=== PATIENT | female | born 1995 | race African-American/Black ===

== ENCOUNTER 2023-01-27 10:09 | Emergency (ER) | payer OTHER ==
[2023-01-27] MEDS ORDERED: ONDANSETRON ODT 4 MG TABLET TL STA (10:41)
[2023-01-27 10:50] LABS: BILIRUBIN,URINE NEGATIVE (NEGATIVE); GLUCOSE, URINE (UA) NEGATIVE (NEGATIVE); KETONES,URINE (UA) NEGATIVE (NEGATIVE); LEUKOCYTE ESTERASE, URINE NEGATIVE (NEGATIVE); NITRITE,URINE NEGATIVE (NEGATIVE); OCCULT BLOOD,URINE NEGATIVE (NEGATIVE); PROTEIN,URINE NEGATIVE (NEGATIVE); UROBILINOGEN,URINE 0.2 (NORMAL) E.U./dL (NORMAL)
[2023-01-27 10:52] LABS: BASOPHILS % (AUTO) 0.5 %; EOSINOPHILS % (AUTO) 0.3 %; HCT - HEMATOCRIT 42.3 % (37.0-47.0); HGB - HEMOGLOBIN 14.3 g/dL (12.0-16.0); LYMPHOCYTES # (AUTO) 1.5 10^3/uL (1.5-3.5); LYMPHOCYTES % (AUTO) 17.4 %; MEAN CORPUSCULAR HEMOGLOBIN 29.8 pg (27.0-31.0); MEAN CORPUSCULAR HGB CONC 33.8 g/dL (32.0-36.0); MEAN CORPUSCULAR VOLUME 88.1 fL (81.0-99.0); MEAN PLATELET VOLUME 9.2 fL (7.9-10.8); MONOCYTES # (AUTO) 0.5 10^3/uL (0.0-1.0); MONOCYTES % (AUTO) 5.9 %; NEUTROPHILS # (AUTO) 6.5 10^3/uL (1.5-6.6); NEUTROPHILS % (AUTO) 75.6 %; PLT - PLATELET COUNT 339 10^3/uL (130-450); RED CELL DISTRIBUTION WIDTH 11.9 % (12.0-15.0); WHITE BLOOD COUNT 8.6 x10^3/uL (4.8-10.8)
[2023-01-27 10:54] LABS: CLARITY,URINE CLEAR (CLEAR); HCG UR QUAL NEGATIVE
[2023-01-27 11:04] LABS: ALBUMIN 4.2 g/dL (3.2-5.5); ALBUMIN/GLOBULIN RATIO 1.2 (1.0-2.2); BILIRUBIN,TOTAL 0.5 mg/dL (0.2-1.0); CALCIUM 8.9 mg/dL (8.5-10.3); CREATININE 0.9 mg/dL (0.4-1.0); POTASSIUM 3.2 mmol/L (3.5-5.0); TOTAL PROTEIN 7.7 g/dL (6.7-8.2)
[2023-01-27] MEDS ORDERED: POTASSIUM CHLORIDE 20 MEQ TABLET PO STA (11:14)
--- NOTE | 2023-01-27 11:29 | ED Physician Documentation ---
PD HPI NVD - Stated complaint Stated Complaint: ABD PX - Chief complaint Chief Complaint: Abd Pain - History obtained from History obtained from: Patient - Additonal information Additional information: Patient is a 27-year-old female presenting for evaluation of epigastric abdominal pain with nausea that started this morning. Patient reports that the pain was much more sharp and severe this morning but has improved after taking Midol. She denies any vomiting and denies any radiation to her symptoms. Denies any diarrhea. 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 She reports that her command made her come in today for an evaluation. Review of Systems Constitutional: denies: Fever Cardiac: denies: Chest pain / pressure Respiratory: denies: Dyspnea GI: reports: Abdominal Pain, Nausea. denies: Vomiting, Diarrhea : denies: Dysuria Musculoskeletal: denies: Back pain Neurologic: denies: Headache PD PAST MEDICAL HISTORY - Past Medical History Past Medical History: Yes Neuro: Migraines - Present Medications Home Medications: Ambulatory Orders Medication Instructions Recorded Confirmed Ondansetron Odt [Zofran] 4 mg TL Q6H PRN #10 tablet 01/27/23 - Allergies Allergies/Adverse Reactions: Allergies Allergy/AdvReac Type Severity Reaction Status Date / Time No Known Drug Allergies Allergy Verified 01/27/23 10:25 - Social History Does the pt smoke?: No Smoking Status: Never smoker PD ED PE NORMAL - General General: Alert and oriented X 3, No acute distress, Well developed/nourished - HEENT HEENT: Atraumatic - Neck Neck: Supple, no meningeal sign - Cardiac Cardiac: RRR - Respiratory Respiratory: No respiratory distress, Clear bilaterally - Abdomen Abdomen: Normal bowel sounds, Soft, Non distended, Other (Mild epigastric tenderness to palpation, no right upper quadrant tenderness or Tenderness elsewhere; ) - Derm Derm: Warm and dry - Neuro Neuro: Normal speech Results - Vitals Vitals: Vital Signs - 24 hr 01/27/23 01/27/23 10:22 11:35 Temperature 36.4 C L Heart Rate 98 68 Respiratory 16 16 Rate Blood Pressure 152/104 H 124/68 O2 Saturation 99 100 Oxygen O2 Source Room air - Labs Labs: Laboratory Tests 04/12/23 04/12/23 04/12/23 10:40 10:47 10:47 WBC 8.6 RBC 4.80 Hgb 14.3 Hct 42.3 MCV 88.1 MCH 29.8 MCHC 33.8 RDW 11.9 L Plt Count 339 MPV 9.2 Neut # (Auto) 6.5 Lymph # (Auto) 1.5 [place] # (Auto) 0.5 Eos # (Auto) 0.0 Baso # (Auto) 0.0 Absolute Nucleated RBC 0.00 Nucleated RBC % 0.0 Sodium 135 Potassium 3.2 L Chloride 104 Carbon Dioxide 23 Anion Gap 8.0 BUN 9 Creatinine 0.9 Estimated GFR (MDRD) 90 Glucose 113 H Calcium 8.9 Total Bilirubin 0.5 AST 23 ALT 15 Alkaline Phosphatase 72 Total Protein 7.7 Albumin 4.2 Globulin 3.5 Albumin/Globulin Ratio 1.2 Lipase 41 Urine Color LIGHT YELLOW Urine Clarity CLEAR Urine pH 6.0 Ur Specific Lowber <=1.005 Urine Protein NEGATIVE Urine Glucose (UA) NEGATIVE Urine Ketones NEGATIVE Urine Occult Blood NEGATIVE Urine Nitrite NEGATIVE Urine Bilirubin NEGATIVE Urine Urobilinogen 0.2 (NORMAL) Ur Leukocyte Esterase NEGATIVE Ur Microscopic Review NOT INDICATED Urine Culture Comments NOT INDICATED Urine HCG, Qual NEGATIVE PD Medical Decision Making - ED course Complexity details: reviewed results, re-evaluated patient ED course: Patient presenting for evaluation of epigastric abdominal pain with nausea. Her urine analysis is negative for infection or . CBC and chemistries were also reviewed with only significant finding to include a potassium of 3.2 which was replaced p.o. Her abdominal exam is benign. She has had no vomiting here. She is tolerating p.o. including her potassium replacement.She has no right upper quadrant tenderness or pain elsewhere on exam and do not think imaging would be helpful at this time. Patient counseled on continued supportive care as well as concerning symptoms to return for. Departure - Departure Disposition: 01 Home, Self Care Clinical Impression: Epigastric abdominal pain Condition: Stable Instructions: ED Abdominal Pain Female Non-Specific Abdominal Pain Follow-Up: SENA[facility] Alfonso [Provider Group] Prescriptions: Ondansetron Odt [Zofran] 4 mg TL Q6H PRN #10 tablet PRN Reason: Nausea / Vomiting Comments: Your labs are reassuring today. Your urine also does not show infection. Your test is negative. I have sent a prescription for antinausea medications to [place] [facility] [place] Please stick with a bland diet today. If you develop any new or worsening symptoms please consider return to the emergency department. Forms: Activity restrictions Discharge Date/Time: 01/27/23 11:36
[2023-01-27 11:37] VITALS: BP 124/68
== END 2023-01-27 11:36 | disposition home or self-care (01) ==
LOC: ED 10:09
DX: R10.13 Epigastric pain (principal)
CPT/HCPCS: 36415; 80053; 81003; 81025; 83690; 85025; 99283; A9270; Q0162; 81001; 87086

== ENCOUNTER 2023-02-19 08:50 | Emergency (ER) | payer OTHER ==
[2023-02-19] MEDS ORDERED: LIDOCAINE 1%-EPI 1:100000 20 ML MDV SUBQ STA (09:28)
--- NOTE | 2023-02-19 09:30 | XRAY Report ---
PROCEDURE: Knee 3 View LT INDICATIONS: injury TECHNIQUE: 3 views of the left knee(s) were acquired. COMPARISON: None. FINDINGS: Bones: No fractures or dislocations. No suspicious bony lesions. Soft tissues: No knee joint effusion. No suspicious soft tissue calcifications or masses. IMPRESSION: No acute bony abnormality. Reviewed by: Frederic Arnett MD on 02/19/2023 9:27 AM PDT Approved by: Frederic Arnett MD on 02/19/2023 9:27 AM PDT Station ID: [id number]
--- NOTE | 2023-02-19 09:34 | ED Physician Documentation ---
PD HPI LOWER EXT INJURY - Stated complaint Stated Complaint: LT KNEE INJ - Chief complaint Chief Complaint: Trauma Ext - History obtained from History obtained from: Patient - Additional information Additional information: Patient is a 27-year-old female presenting for evaluation of laceration to left knee that occurred this morning. Patient states that she was speed walking at work when she excellently bumped her knee against a metal box and fell forward. She did not hit her head or have LOC. Her tetanus is up-to-date. She is not on a blood thinner. She has been able to ambulate.Patient is active duty [employer]. Review of Systems Constitutional: denies: Fever Cardiac: denies: Chest pain / pressure Respiratory: denies: Dyspnea GI: denies: Abdominal Pain Skin: reports: Laceration (s) Musculoskeletal: reports: Extremity pain Neurologic: denies: Head injury PD PAST MEDICAL HISTORY - Past Medical History Neuro: Migraines - Present Medications Home Medications: Ambulatory Orders Medication Instructions Recorded Confirmed Ondansetron Odt [Zofran] 4 mg TL Q6H PRN #10 tablet 01/27/23 Sertraline [Zoloft] 50 mg PO DAILY 02/19/23 02/19/23 - Allergies Allergies/Adverse Reactions: Allergies Allergy/AdvReac Type Severity Reaction Status Date / Time No Known Drug Allergies Allergy Verified 02/19/23 09:06 - Social History Does the pt smoke?: No Smoking Status: Never smoker PD ED PE NORMAL - General General: Alert and oriented X 3, No acute distress, Well developed/nourished - HEENT HEENT: Atraumatic - Neck Neck: Supple, no meningeal sign - Cardiac Cardiac: Strong equal pulses - Respiratory Respiratory: No respiratory distress - Derm Derm: Warm and dry - Extremities Extremities: Normal ROM s pain, Other (2 cm Laceration Over superior portion of patella, Normal range of motion of left knee,) - Neuro Neuro: No motor deficit, No sensory deficit, Normal speech Results - Vitals Vitals: Vital Signs - 24 hr 02/19/23 02/19/23 09:05 10:39 Temperature 36.6 C Heart Rate 91 90 Respiratory 16 16 Rate Blood Pressure 148/90 H 132/80 H O2 Saturation 98 100 Oxygen O2 Source Room air Procedures - Laceration (location) Left knee Length in cm: 2 Wound type: Linear, Into subcut fat, Clean, Other (No signs that it extends into the joint capsule) Neurovascular status: Sensory intact, Motor intact, Vascular intact Tendon involvement: Tendon intact Anesthesia: Lidocaine 1% with epi Wound preparation: Hibiclens, Irrigated copiously NS, Wound explored, To the base Skin layer closure: Size #-0 - enter number (4), Sutures - enter # (6) Other: Patient tolerated well, No complications, Neurovascular intact, Dressing applied, Tetanus UTD PD Medical Decision Making - ED course Complexity details: reviewed results, re-evaluated patient, d/w patient ED course: Patient presenting for evaluation of Left knee laceration and injury. She has good range of motion. I reviewed her x-ray and see no signs for fracture or dislocation. I did explore the laceration and do not see signs that it violates into the joint space.The wound was copiously cleaned and irrigated. It was sutured. An Bird wrap was applied. I did offer the patient crutches to help her stay off of it but she declines. She understands that she should avoid movements that require a lot of bending at the knee or work on her knees.She understands the need for suture removal in 10 to 14 days as well as concerning symptoms to return for.Her tetanus is up-to-date. Departure - Departure Disposition: 01 Home, Self Care Clinical Impression: Left knee injury, Laceration of left knee Condition: Stable Instructions: ED Knee Pain UKO, ED Laceration Ext Sutr Stap Tape Comments: Your x-ray does not show a broken or out of place bone in your knee. You do have a laceration to your knee that was closed with sick stitches. The stitches should remain in place for the next 10 to 14 days (03/05/23). 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 I will have you on work restrictions as you should not be doing work on your knees or other work that requires excessive bending of your knees. Please take caution given at the location of the laceration. We have been applied an Bird wrap today. You continue using the Bird wrap to help prevent you from bending the knee too much or I would recommend using a [id number] knee brace.If you are having pain I would continue with anti-inflammatory such as ibuprofen or acetaminophen, ice and resting. I would recommend close follow-up with your primary care provider if you are continuing to have pain. Forms: Activity restrictions Discharge Date/Time: 02/19/23 10:40
[2023-02-19 10:40] VITALS: BP 132/80
== END 2023-02-19 10:40 | disposition home or self-care (01) ==
LOC: ED 08:50
DX: S81.012A Laceration without foreign body, left knee, initial encounter (principal); W22.09XA Striking against other stationary object, initial encounter; Y93.01 Activity, walking, marching and hiking; Y92.139 Unspecified place military base as the place of occurrence of the external cause; Y99.1 Military activity
CPT/HCPCS: 12001; 99283